=== PATIENT | female | born 2000 | race Caucasian/White ===

== ENCOUNTER 2024-12-29 09:45 | Emergency (ER) | payer OTHER, SELFPAY ==
[2024-12-29 09:46] VITALS: BP 132/84; PULSE 107; RESP 16; TEMP 36.5; O2SAT 99; BMI 19.8
--- NOTE | 2024-12-29 10:33 | ED.RN ---
PT STATES SHE DOES NOT HAVE ANYTHING WRONG, SHE MADE IT UP TO GET HER HERE WHO IS MANIC
--- NOTE | 2024-12-29 10:40 | ED.VIS.FEGU ---
HPI HPI - Female History of Present Illness Chief Complaint: Narrative Narrative: Chief complaint and HPI: 24-year-old female with no significant past medical history presents to the ED with for wanting evaluated for psychiatric illness. Patient states that her spouse has been acting abnormal for several weeks. She states that he has had grandiose ideas, flight of ideas, pressured speech, insomnia. She states he needs placed in an inpatient psychiatric facility. She states the only reason she could get him to come to the hospital today is if she acted like there was something wrong with her. She states she is not . She has no concerns for . She denies any fever, chills, shortness of breath, chest pain abdominal pain, nausea, vomiting. Her mother is in the room and confirms the entire story. Patient denies any suicidal or homicidal ideation. She states she has not been physically abused by her but she does not feel safe with him coming home secondary to his psychiatric illness. Review of systems: See HPI Medications: As listed on the chart Allergies: As listed on the chart PFSH: Per chart Vital signs: As listed on the chart. Reviewed. Physical exam: Gen: A&O x3, NAD Head: Normocephalic, atraumatic Eyes: No sclera icterus, conjunctiva clear, PERRL ENT: Moist mucous membranes CV: RRR, no murmurs Resp: Lungs CTA BL, no w/r/c GI: Abd soft, non-distended, non-tender, no r/r/g Musc: Full ROM, no deformity Skin: Warm, dry Neuro: Alert, oriented, grossly intact Psych: Cooperative, appropriate mood and affect [facility] Allergy/AdvReac Type Severity Reaction Status Date / Time No Known Allergies Allergy Verified 12/29/24 09:50 Social History Smoking Status: Never smoker EXAM Physical Exam Const Vital Signs: 12/29/24 09:46 Temperature 97.7 F L Temperature Source Oral Pulse Rate 107 H Respiratory Rate 16 Blood Pressure 132/84 H Blood Pressure Mean 100 Pulse Ox 99 Oxygen Delivery Method Room Air MDM MDM MDM Narrative Medical decision making narrative: 24-year-old female with no significant past medical history presents to the ED with for wanting evaluated for psychiatric illness. Patient states that her spouse has been acting abnormal for several weeks. She states that he has had grandiose ideas, flight of ideas, pressured speech, insomnia. She states he needs placed in an inpatient psychiatric facility. She states the only reason she could get him to come to the hospital today is if she acted like there was something wrong with her. She states she is not . She has no concerns for . She denies any fever, chills, shortness of breath, chest pain abdominal pain, nausea, vomiting. Her mother is in the room and confirms the entire story. Patient denies any suicidal or homicidal ideation. She states she has not been physically abused by her but she does not feel safe with him coming home secondary to his psychiatric illness. On presentation, patient in no acute distress. She is intermittently upset given her home situation. Given patient has no medical complaints at this time I do not think any workup is needed. She states that she was only here to get her spouse to the emergency department. Mother in the room confirms the same story which is why believe this is accurate. Patient stable to discharge home. My partner is seeing the patient spouse. Impression: 1. Spousal concern Discharge Plan Triage Chief Complaint: ED Provider: Pablo Aguirre Dx/Rx/DC Orders Primary Care Provider: Wes Shahid Referrals: Wes Shahid DO [Primary Care Provider, Family Practice] Print Language: Yi
== END 2024-12-29 10:50 | disposition home or self-care (01) ==
PROVIDERS: Emergency Provider Surgery; PCP Family Medicine; Visit Provider Surgery
DX: Z76.89 Persons encountering health services in other specified circumstances (principal)
CPT/HCPCS: 99282